=== PATIENT | male | born 1950 | race Caucasian/White ===

== ENCOUNTER → 2019-06-27 | Outpatient (CLI) | payer MEDICARE | END | disposition home or self-care (01) | LOC: RAH 09:51 | PROVIDERS: ATTEND Internal Medicine Gastroenterology | DX: K76.0 Fatty (change of) liver, not elsewhere classified (principal) | CPT/HCPCS: 76700 ==

== ENCOUNTER → 2019-09-09 | Outpatient (CLI) | payer MEDICARE, BC | END | disposition home or self-care (01) | LOC: SHCH 13:20 | PROVIDERS: ATTEND Internal Medicine Cardiovascular Disease | DX: I48.0 Paroxysmal atrial fibrillation (principal); R07.9 Chest pain, unspecified | CPT/HCPCS: 93306 ==

== ENCOUNTER → 2019-09-11 | Outpatient (CLI) | payer MEDICARE, BC ==
[~2019-09-11] VITALS: Ht 177.8 cm; Wt 96.2 kg
[~2019-09-11] MED LIST: REGADENOSON 0.4 MG/5 ML PF SYG IVP SCH
== END | disposition home or self-care (01) ==
LOC: SHCH 07:42
PROVIDERS: ATTEND Internal Medicine Cardiovascular Disease
DX: I51.7 Cardiomegaly (principal)
CPT/HCPCS: 78452; 93017; 96374; A9500 ×2; J2785

== ENCOUNTER 2020-01-30 06:00 | Day surgery (SDC) | payer MEDICARE ==
[~2020-01-30] VITALS: Ht 177.8 cm; Wt 93.8 kg
[2020-01-30 06:12] VITALS: BP 128/61; PULSE 66; RESP 18; TEMP 97.9
[2020-01-30] MEDS ORDERED: SODIUM CHLORIDE 0.9% 1000ML 1,000 ML IV ONE (06:21)
[2020-01-30] MEDS ORDERED: MIDAZOLAM HCL 1 MG/ML 2ML VIAL ONE (08:48)
[2020-01-30] MEDS ORDERED: PROPOFOL 10 MG/ML 20ML VIAL IV ONE (08:48)
[2020-01-30] MEDS ORDERED: GLUCAGON 1MG KIT 1 MG ML ONE (09:06)
[2020-01-30 09:20] VITALS: BP 104/58; PULSE 57; RESP 18; TEMP 97.5
[2020-01-30 09:25] VITALS: BP 107/65; PULSE 56; RESP 16
[2020-01-30 09:30] VITALS: BP 125/71; PULSE 62; RESP 16
[2020-01-30 09:35] VITALS: BP 128/77; PULSE 61; RESP 16
== END 2020-01-30 09:53 | disposition home or self-care (01) ==
LOC: ENDO 06:00 → DAH 06:00 → ENDO 09:53
PROVIDERS: ATTEND Internal Medicine Gastroenterology
DX: R19.5 Other fecal abnormalities (principal); D12.3 Benign neoplasm of transverse colon; D12.2 Benign neoplasm of ascending colon; D12.4 Benign neoplasm of descending colon; K63.89 Other specified diseases of intestine; I10 Essential (primary) hypertension; I48.0 Paroxysmal atrial fibrillation; F41.9 Anxiety disorder, unspecified; M19.90 Unspecified osteoarthritis, unspecified site; F17.210 Nicotine dependence, cigarettes, uncomplicated; Z79.01 Long term (current) use of anticoagulants; Z79.899 Other long term (current) drug therapy; Z90.49 Acquired absence of other specified parts of digestive tract; Z98.890 Other specified postprocedural states; Z98.49 Cataract extraction status, unspecified eye; Z11.59 Encounter for screening for other viral diseases
CPT/HCPCS: 45380; 45385; 93005; A4215 ×2; A4216; A4221; A4222; A4223; A4606; A4615; A4657 ×2; A4663; J1610; J2250; J2704; J7030; U0003 ×2

== ENCOUNTER → 2020-02-19 | Outpatient (CLI) | payer MEDICARE | END | disposition home or self-care (01) | LOC: RAH 14:19 | PROVIDERS: ATTEND Orthopaedic Surgery | DX: M19.011 Primary osteoarthritis, right shoulder (principal) ==

== ENCOUNTER → 2020-10-05 | Outpatient (CLI) | payer MEDICARE ==
[~2020-10-05] MED LIST changes: +ALPR1TAB7 PO; +MELATONIN PO; +ONDA4TAB4 PO; +OXYCODONE PO; +PRESERVISION PO; -REGADENOSON 0.4 MG/5 ML PF SYG IVP SCH; +RIVA20TA PO; +TIZA4TAB5 PO; +TORS20TA4 PO; +VENLAFAXINE PO; +VERA240C3 PO
== END | disposition home or self-care (01) ==
LOC: RAH 13:32
PROVIDERS: ATTEND Anesthesiology Pain Medicine
DX: M47.26 Other spondylosis with radiculopathy, lumbar region (principal)
CPT/HCPCS: 72131

== ENCOUNTER 2021-10-06 13:11 | Emergency (ER) | payer MEDICARE ==
[~2021-10-06] VITALS: Ht 182.9 cm; Wt 83.9 kg
[~2021-10-06 13:11] MED LIST changes: +TIZA-211 PO; -TIZA4TAB5 PO
[2021-10-06 14:34] LABS: CREATININE 0.9 mg/dL (0.5-1.5)
[2021-10-06 14:57] VITALS: BP 106/66
== END 2021-10-06 15:00 | disposition home or self-care (01) ==
LOC: EDH 13:11
DX: Z02.89 Encounter for other administrative examinations (principal); I10 Essential (primary) hypertension; F41.9 Anxiety disorder, unspecified; Z79.899 Other long term (current) drug therapy
CPT/HCPCS: 36415; 82565; 84520

== ENCOUNTER → 2021-10-14 | Outpatient (CLI) | payer MEDICARE ==
[~2021-10-14] MED LIST changes: +GADOTERATE MEGLUMINE 10 MMOL/20 ML VIAL IV ONE
== END | disposition home or self-care (01) ==
LOC: RAH 13:20
PROVIDERS: ATTEND Orthopaedic Surgery
DX: D16.8 Benign neoplasm of pelvic bones, sacrum and coccyx (principal); N32.3 Diverticulum of bladder; M85.08 Fibrous dysplasia (monostotic), other site; M89.9 Disorder of bone, unspecified; D03.71 Melanoma in situ of right lower limb, including hip
CPT/HCPCS: 73723; A9575

== ENCOUNTER 2021-12-16 11:00 | Inpatient (IN) | payer MEDICARE ==
[~2021-12-16] VITALS: Ht 182.9 cm; Wt 87.2 kg
[~2021-12-16 11:00] MED LIST changes: -GADOTERATE MEGLUMINE 10 MMOL/20 ML VIAL IV ONE; -MELATONIN PO; -OXYCODONE PO; -PRESERVISION PO; -RIVA20TA PO; -VENLAFAXINE PO
[2021-12-16 12:10] LABS: BASOPHILS % (AUTO) 0.3 % (0.0-5.0); EOSINOPHILS % (AUTO) 2.2 % (0.0-8.0); HEMATOCRIT 41.4 % (42-54); LYMPHOCYTES % (AUTO) 13.8 % (21.0-51.0); MEAN CORPUSCULAR HEMOGLOBIN 32.7 pg (27.0-33.0); MEAN CORPUSCULAR HGB CONC 33.6 g/dL (32.0-36.0); MEAN CORPUSCULAR VOLUME 97.4 fL (79-99); MONOCYTES % (AUTO) 7.6 % (3.0-13.0); NEUTROPHILS % (AUTO) 75.7 % (40.0-77.0); PLATELET COUNT (AUTO) 208 K/uL (130-400); RED BLOOD CELL COUNT(AUTO) 4.25 MIL/uL (4.50-6.20); RED CELL DISTRIBUTION WIDTH 12.2 % (11.0-15.5)
[2021-12-16 12:13] LABS: APPEARANCE,URINE Turbid (CLEAR); BILIRUBIN,URINE Negative (NEGATIVE); COLOR,URINE Yellow (YELLOW); GLUCOSE, URINE (UA) Negative (NEGATIVE); KETONES,URINE Negative (NEGATIVE); LEUKOCYTE ESTERASE ,URINE Large (NEGATIVE); NITRATE,URINE Positive (NEGATIVE); OCCULT BLOOD,URINE Small (NEGATIVE); PROTEIN,URINE Negative (NEGATIVE); UROBILINOGEN,URINE 0.2 mg/dL (0.2-1.0)
[2021-12-16 12:17] LABS: CREATININE 0.9 mg/dL (0.5-1.5); POTASSIUM 3.6 mmol/L (3.5-5.1)
[2021-12-16 12:20] LABS: INR 1.13 (0.85-1.15); PROTHROMBIN TIME 12.2 SEC (9.6-11.6)
[2021-12-16 12:22] LABS: BACTERIA,URINE Moderate /HPF (None Seen); WBC,URINE Full Field /HPF (0-1)
[2021-12-16 12:23] LABS: TRANSITIONAL EPI CELLS,URINE Rare /HPF (None Seen)
[2021-12-16 13:28] VITALS: BP 113/71
[2021-12-16] MEDS ORDERED: TADA20TA PO (14:03)
[2021-12-16] MEDS ORDERED: FENTANYL PATCH SD (14:03)
[2021-12-16] MEDS ORDERED: DOCU100T9 PO (14:03)
[2021-12-16] MEDS ORDERED: GENTAMICIN SULFATE 240 MG in 0.9%NACL 100ML 100 ML IV SCH (15:00)
[2021-12-19] VITALS (25 sets, daily range): BP systolic 92–164; BP diastolic 57–97
[2021-12-19] MEDS ORDERED: LACTATED RINGERS 1000ML 1,000 ML IV ONE (07:46)
[2021-12-19] MEDS ORDERED: CEFAZOLIN SODIUM 1 GM VIAL ONE ×2 (07:56→09:35)
[2021-12-19] MEDS ORDERED: ACETAMINOPHEN 500 MG TABLET ONE (09:12)
[2021-12-19] MEDS ORDERED: CELECOXIB 200 MG CAP ONE (09:12)
[2021-12-19] MEDS ORDERED: KETOROLAC 15MG/ML VIAL (15MG/ML) ONE ×2 (09:12→16:04)
[2021-12-19] MEDS ORDERED: TRANEXAMIC ACID 1000MG/10ML ONE ×2 (09:35→11:58)
[2021-12-19] MEDS ORDERED: MIDAZOLAM HCL 1 MG/ML 2ML VIAL ONE (11:05)
[2021-12-19] MEDS ORDERED: FENTANYL CITRATE PF 50 MCG/1 ML 2ML VIAL ONE (11:05)
[2021-12-19] MEDS ORDERED: LIDOCAINE PF 100MG/5ML (2%) SYRINGE 5ML ONE (11:05)
[2021-12-19] MEDS ORDERED: PROPOFOL 10 MG/ML 20ML VIAL IV ONE (11:05)
[2021-12-19] MEDS ORDERED: ROCURONIUM 10MG/1ML SYR 10 MG/ML ML ONE ×2 (11:05→12:23)
[2021-12-19] MEDS ORDERED: SUCCINYLCHOLINE CHLORIDE 20 MG/ML 10 ML VIAL ONE (11:05)
[2021-12-19] MEDS ORDERED: CEFAZOLIN SODIUM 2 GM VIAL IV ONE ×2 (11:30)
[2021-12-19] MEDS ORDERED: CEFAZOLIN SODIUM 1 GM VIAL IRRIG ONE ×2 (12:08)
[2021-12-19] MEDS ORDERED: TRANEXAMIC ACID 1000MG/10ML TP ONE (12:08)
[2021-12-19] MEDS ORDERED: TRANEXAMIC ACID 1000MG/10ML IV ONE ×2 (12:09)
[2021-12-19] MEDS ORDERED: EPHEDRINE SULFATE 50 MG/ML AMPULE ONE (12:48)
[2021-12-19] MEDS ORDERED: ONDANSETRON 4MG INJ IVP PRN (15:00)
[2021-12-19] MEDS ORDERED: POTASSIUM CHLORIDE 10% ELIXIR 20 MEQ/15 ML UDCUP PO PRN (15:00)
[2021-12-19] MEDS: ACETAMINOPHEN 500 MG TABLET PO SCH (15:00)
[2021-12-19] MEDS ORDERED: LIDOCAINE HCL-MPF 1% 2ML VIAL IV PRN (15:00)
[2021-12-19] MEDS ORDERED: CALCIUM CARB 500MG PO PRN (15:00)
[2021-12-19] MEDS ORDERED: OXYCODONE HCL 5 MG TAB PO PRN (15:00)
[2021-12-19] MEDS ORDERED: FERROUS FUMARATE 324 MG TABLET PO PRN (15:00)
[2021-12-19] MEDS ORDERED: TRAMADOL HCL 50 MG TABLET PO PRN (15:00)
[2021-12-19] MEDS ORDERED: DiphenhydrAMINE HCL 50 MG/ML VIAL IVP PRN (15:00)
[2021-12-19] MEDS ORDERED: POTASSIUM CHLORIDE 20MEQ/100ML 100 ML IV PRN (15:00)
[2021-12-19] MEDS ORDERED: TEMAZEPAM 15 MG CAPSULE PO PRN (15:00)
[2021-12-19] MEDS ORDERED: MEPERIDINE-PF 25 MG/ML SYG ONE ×2 (15:28→15:36)
[2021-12-19] MEDS: 0.9%NACL 1000ML 1,000 ML IV SCH (16:45)
[2021-12-19] MEDS: OXYCODONE HCL 5 MG TAB PO PRN (16:53)
[2021-12-19] MEDS: KETOROLAC 15MG/ML VIAL (15MG/ML) IV PRN (17:12)
[2021-12-19] MEDS ORDERED: ONDANSETRON 4MG TABLET PO PRN (19:30)
[2021-12-19] MEDS ORDERED: DOCUSATE SODIUM 100 MG CAP PO PRN (19:30)
[2021-12-19] MEDS ORDERED: FENTANYL 37.5 MCG TP SCH (19:30)
[2021-12-19] MEDS: ASPIRIN 81 MG EC TAB PO SCH (20:50)
[2021-12-19] MEDS: PREGABALIN 25 MG CAP PO SCH (20:51)
[2021-12-19] MEDS: CELECOXIB 200 MG CAP PO SCH (20:51)
[2021-12-19] MEDS: FAMOTIDINE 20MG TAB PO SCH (20:51)
[2021-12-19] MEDS: NITROFURANTOIN MONOHYD/M-CRYST 100 MG CAPSULE PO SCH (20:51)
[2021-12-19] MEDS: CEFAZOLIN SODIUM 1 GM VIAL IVP SCH (20:52)
[2021-12-19] MEDS: ALPRAZOLAM 1 MG TAB PO SCH (21:00)
[2021-12-19] MEDS: VERAPAMIL HCL 240 MG SRTAB PO SCH (21:04)
[2021-12-19] MEDS: TIZANIDINE HCL 2 MG TABLET PO SCH (23:59)
[2021-12-20] MEDS: OXYCODONE HCL 5 MG TAB PO PRN ×2 (00:01→12:41)
[2021-12-20] MEDS: 0.9%NACL 1000ML 1,000 ML IV SCH (01:00)
[2021-12-20] MEDS: CEFAZOLIN SODIUM 1 GM VIAL IVP SCH (04:28)
[2021-12-20 05:02] VITALS: BP 131/64
[2021-12-20 05:19] LABS: HEMATOCRIT 35.9 % (42-54); MEAN CORPUSCULAR HEMOGLOBIN 31.7 pg (27.0-33.0); MEAN CORPUSCULAR HGB CONC 32.3 g/dL (32.0-36.0); MEAN CORPUSCULAR VOLUME 98.1 fL (79-99); RED BLOOD CELL COUNT(AUTO) 3.66 MIL/uL (4.50-6.20); RED CELL DISTRIBUTION WIDTH 11.9 % (11.0-15.5); WHITE BLOOD COUNT (AUTO) 5.9 K/uL (4.8-10.8)
[2021-12-20 05:55] LABS: CREATININE 0.7 mg/dL (0.5-1.5); POTASSIUM 3.6 mmol/L (3.5-5.1)
[2021-12-20] MEDS: KCL 20 MEQ ERTAB PO PRN ×3 (06:25→17:20)
[2021-12-20] MEDS: ACETAMINOPHEN 500 MG TABLET PO SCH ×4 (06:59→20:13)
[2021-12-20 08:06] VITALS: BP 116/78
[2021-12-20] MEDS: TORSEMIDE 20 MG TAB PO SCH (09:02)
[2021-12-20] MEDS: NITROFURANTOIN MONOHYD/M-CRYST 100 MG CAPSULE PO SCH ×2 (09:02→20:12)
[2021-12-20] MEDS: ASPIRIN 81 MG EC TAB PO SCH ×2 (09:03→20:13)
[2021-12-20] MEDS: TAMSULOSIN HCL 0.4 MG CAP.ER.24H PO SCH (09:03)
[2021-12-20] MEDS: KETOROLAC 15MG/ML VIAL (15MG/ML) IV PRN (09:03)
[2021-12-20] MEDS: FAMOTIDINE 20MG TAB PO SCH ×2 (09:03→20:13)
[2021-12-20] MEDS: POLYETHYLENE GLYCOL 3350 17 GM POWD.PACK PO SCH (09:03)
[2021-12-20] MEDS: CELECOXIB 200 MG CAP PO SCH ×2 (09:03→20:12)
[2021-12-20] MEDS: PREGABALIN 25 MG CAP PO SCH ×2 (09:03→20:12)
[2021-12-20] MEDS: TIZANIDINE HCL 2 MG TABLET PO SCH ×2 (10:36→20:27)
[2021-12-20 11:32] VITALS: BP 154/88
[2021-12-20 16:33] VITALS: BP 157/92
[2021-12-20 20:00] VITALS: BP 136/93
[2021-12-20] MEDS: ALPRAZOLAM 1 MG TAB PO SCH (20:12)
[2021-12-20] MEDS: VERAPAMIL HCL 240 MG SRTAB PO SCH (20:13)
[2021-12-21] VITALS: BP 135/96
[2021-12-21 04:00] VITALS: BP 116/87
[2021-12-21] MEDS: ACETAMINOPHEN 500 MG TABLET PO SCH ×2 (04:23→15:42)
[2021-12-21 07:52] VITALS: BP 147/89
[2021-12-21] MEDS: ASPIRIN 81 MG EC TAB PO SCH (08:42)
[2021-12-21] MEDS: CELECOXIB 200 MG CAP PO SCH (08:42)
[2021-12-21] MEDS: FAMOTIDINE 20MG TAB PO SCH (08:42)
[2021-12-21] MEDS: POLYETHYLENE GLYCOL 3350 17 GM POWD.PACK PO SCH (08:42)
[2021-12-21] MEDS: TIZANIDINE HCL 2 MG TABLET PO SCH (08:42)
[2021-12-21] MEDS: PREGABALIN 25 MG CAP PO SCH (08:42)
[2021-12-21] MEDS: NITROFURANTOIN MONOHYD/M-CRYST 100 MG CAPSULE PO SCH (08:42)
[2021-12-21] MEDS: TAMSULOSIN HCL 0.4 MG CAP.ER.24H PO SCH (08:42)
[2021-12-21] MEDS: TORSEMIDE 20 MG TAB PO SCH (08:43)
[2021-12-21] MEDS: OXYCODONE HCL 5 MG TAB PO PRN (08:44)
[2021-12-21] MEDS ORDERED: HYDR-4060 PO (10:31)
[2021-12-21] MEDS ORDERED: NITR100C4 PO (10:31)
[2021-12-21] MEDS ORDERED: AEC81 PO (10:31)
[2021-12-21 11:40] VITALS: BP 146/89
[2021-12-22] MEDS ORDERED: BISACODYL 10 MG SUPP.RECT RC PRN (15:00)
== END 2021-12-21 16:00 | disposition home or self-care (01) | DRG 464 ==
LOC: EDSTATUS 11:00 → OBSVTOIN 12-19 06:29 → DAHIP 12-19 06:29 → INTOOBSV 12-19 06:29 → EDSTATUS 12-19 11:00 → 4AH 12-19 16:30
PROVIDERS: ADMIT Orthopaedic Surgery; ATTEND Orthopaedic Surgery
PROC: 0SRC0N9 Replacement of Right Knee Joint with Patellofemoral Synthetic Substitute, Cemented, Open Approach (ICD-10-PCS; 2021-12-19)
PROC: 3E0T3BZ Introduction of Anesthetic Agent into Peripheral Nerves and Plexi, Percutaneous Approach (ICD-10-PCS; 2021-12-19)
PROC: 0SPC0NZ Removal of Patellofemoral Synthetic Substitute from Right Knee Joint, Open Approach (ICD-10-PCS; principal; 2021-12-19 12:08)
DX: T84.89XA Other specified complication of internal orthopedic prosthetic devices, implants and grafts, initial encounter (principal); N39.0 Urinary tract infection, site not specified; B96.20 Unspecified Escherichia coli [E. coli] as the cause of diseases classified elsewhere; F17.200 Nicotine dependence, unspecified, uncomplicated; I10 Essential (primary) hypertension; I48.91 Unspecified atrial fibrillation; M65.9 Synovitis and tenosynovitis, unspecified; Z79.01 Long term (current) use of anticoagulants; Z90.49 Acquired absence of other specified parts of digestive tract; D64.9 Anemia, unspecified; Y83.8 Other surgical procedures as the cause of abnormal reaction of the patient, or of later complication, without mention of misadventure at the time of the procedure; Y92.89 Other specified places as the place of occurrence of the external cause
CPT/HCPCS: 36415; 80048; 81001; 85025; 85027; 85610; 87077; 87088; 87186; 87635; 87641; 93005; 97039; G0378; J0330; J0690; J1580; J1885; J2001; J2175; J2250; J2704; J3010; J3490; J7030; J7120

== ENCOUNTER → 2022-11-07 | Outpatient (CLI) | payer MEDICARE ==
[~2022-11-07] MED LIST changes: +AEC81 PO; +DOCU100T9 PO; +FENTANYL PATCH SD; +HYDR-4060 PO; +NITR100C4 PO; +TADA20TA PO
== END | disposition home or self-care (01) ==
LOC: SHCH 14:39
PROVIDERS: ATTEND Internal Medicine Cardiovascular Disease
DX: I08.1 Rheumatic disorders of both mitral and tricuspid valves (principal); R07.9 Chest pain, unspecified
CPT/HCPCS: 93306

== ENCOUNTER → 2022-11-10 | Outpatient (CLI) | payer OTHER | END | disposition home or self-care (01) | LOC: RAH 12:26 | PROVIDERS: ATTEND Internal Medicine Cardiovascular Disease | DX: Z13.6 Encounter for screening for cardiovascular disorders (principal); R93.1 Abnormal findings on diagnostic imaging of heart and coronary circulation | CPT/HCPCS: 75571 ==